=== PATIENT | male | born 1985 | race Caucasian/White ===

== ENCOUNTER 2016-04-04 15:30 | Emergency (ER) | payer SELFPAY ==
[~2016-04-04] VITALS: Ht 180.3 cm; Wt 81.6 kg
[2016-04-04 15:57] LABS: BILIRUBIN,URINE NEGATIVE (NEGATIVE); KETONES,URINE 2+ (NEGATIVE); LEUKOCYTE ESTERASE ,URINE NEGATIVE (NEGATIVE); NITRITE,URINE NEGATIVE (NEGATIVE); PH,URINE 5 (5-9); PROTEIN,URINE 1+ (NEGATIVE); UROBILINOGEN,URINE NORMAL (NORMAL)
[2016-04-04 16:00] LABS: BASOPHILS % (AUTO) 0 % (0-10); EOSINOPHILS % (AUTO) 0 % (0-10); LYMPHOCYTES # (AUTO) 1.1 X 10^3 (1.0-4.0); LYMPHOCYTES % (AUTO) 9 % (12-44); MEAN CORPUSCULAR HEMOGLOBIN 32 PG (25-34); MEAN CORPUSCULAR HGB CONC 35 G/DL (32-36); MEAN CORPUSCULAR VOLUME 91 FL (80-99); MEAN PLATELET VOLUME 9.4 FL (7.4-10.4); MONOCYTES # (AUTO) 0.8 X 10^3 (0.0-1.0); MONOCYTES % (AUTO) 7 % (0-12); NEUTROPHILS # (AUTO) 10.1 X 10^3 (1.8-7.8); NEUTROPHILS % (AUTO) 84 % (42-75); PLATELET COUNT 220 10^3/uL (130-400); RED BLOOD COUNT 4.42 10^6/uL (4.35-5.85)
[2016-04-04 16:06] LABS: WBC,URINE RARE /HPF
[2016-04-04 16:12] LABS: ALANINE AMINOTRANSFERASE 42 U/L (0-55); ALBUMIN 4.8 G/DL (3.2-4.5); ANION GAP 11 MMOL/L (5-14); ASPARTATE AMINO TRANSFERASE 47 U/L (5-34); BILIRUBIN,TOTAL 1.7 MG/DL (0.1-1.0); BLOOD UREA NITROGEN 19 MG/DL (7-18); BUN/CREATININE RATIO 22; CALCIUM 9.3 MG/DL (8.5-10.1); CARBON DIOXIDE 26 MMOL/L (21-32); CHLORIDE 100 MMOL/L (98-107); CREATININE SERUM 0.87 MG/DL (0.60-1.30); GFR ESTIMATED > 60; GLUCOSE 85 MG/DL (70-105); POTASSIUM 3.9 MMOL/L (3.6-5.0); SODIUM 137 MMOL/L (135-145); TOTAL PROTEIN 7.4 G/DL (6.4-8.2)
[2016-04-04 16:13] LABS: ALCOHOL < 10 MG/DL (<10)
--- NOTE | 2016-04-04 17:11 | ED Neurological Problem ---
General Chief Complaint: Neurological Problems Stated Complaint: SEIZURE Nursing Triage Note: AMBUALTED TO ROOM 07 WITH COMPLAINTS OF HAVING A SEIZURE WHILE AT WORK. HIT HIS HEAD ON THE GROUND CAUSING A BLACK EYE ON THE LEFT SIDE. STATES HE HAD A PREVIOUS SEIZURE ABOUT 1 YR AGO BUT WAS NOT PUT ON MEDICAITONS. Nursing Sepsis Screen: No Definite Risk Source: patient Exam Limitations: no limitations History of Present Illness Time seen by provider: 17:06 Initial Comments The patient is a 31-year-old white male who I coincidentally saw early in 2016 after a seizure. He reports that he works for a [employer] and they were working in their supplies building when he apparently fell to the ground and had a tonic-clonic type seizure. He believes that his postictal state was short if any. He apparently did not sleep or exhibit addled behavior afterwards. He has no complaints at this time. He is noted to have a small ecchymosis on the left lateral upper eyelid Timing/Duration: 4-6 hours Associated Symptoms: denies symptoms Allergies and Home Medications Allergies Coded Allergies: No Known Drug Allergies (Unverified , 04/17/15) Home Medications No Active Prescriptions or Reported Meds Constitutional: see HPI Eyes: No Symptoms Reported Ears, Nose, Mouth, Throat: no symptoms reported Respiratory: no symptoms reported Cardiovascular: no symptoms reported Gastrointestinal: no symptoms reported Genitourinary: no symptoms reported Musculoskeletal: no symptoms reported Skin: no symptoms reported Psychiatric/Neurological: No Symptoms Reported Endocrine: No Symptoms Reported Hematologic/Lymphatic: No Symptoms Reported Past Vrzpycb-Hfnemx-Unvbrf Hx Patient Social History Alcohol Use: Regular Use Recreational Drug Use: No Smoking Status: Never a Smoker Recent Foreign Travel: No Contact w/Someone Who Travel: No Recent Infectious Disease Expo: No Recent Hopitalizations: No Seasonal Allergies Seasonal Allergies: No Surgeries HX Surgeries: No Respiratory Hx Respiratory Disorders: No Cardiovascular Hx Cardiac Disorders: No Neurological Hx Neurological Disorders: Yes Neurological Disorders: Seizure Disorder Reproductive System Hx Reproductive Disorders: No Sexually Transmitted Disease: No HIV/AIDS: No Genitourinary Hx Genitourinary Disorders: No Gastrointestinal Hx Gastrointestinal Disorders: No Musculoskeletal Hx Musculoskeletal Disorders: No Endocrine Hx Endocrine Disorders: No HEENT HX ENT Disorders: No Cancer Hx Cancer: No Psychosocial Hx Psychiatric Problems: Yes (alcohol dependence) Integumentary HX Skin/Integumentary Disorder: No Blood Transfusions Hx Blood Disorders: No Family Medical History Family Medial History: Alcoholism 19 FATHER Hypertension 19 FATHER Myocardial infarction 19 FATHER Physical Exam Vital Signs Vital Sign - Last 12Hours 04/04/16 15:36 Temp 98.9 Pulse 89 Resp 18 B/P 167/98 Pulse Ox 99 Capillary Refill : Less Than 3 Seconds General Appearance: no apparent distress HEENT: other (ecchymosis lateral aspect left upper lid) Neck: full range of motion Respiratory: chest non-tender lungs clear normal breath sounds no respiratory distress no accessory muscle use respiratory distress Cardiovascular: normal peripheral pulses regular rate, rhythm no edema no gallop no JVD no murmur Gastrointestinal: normal bowel sounds non tender soft no organomegaly no pulsatile mass Back: normal inspection no CVA tenderness no vertebral tenderness CVA tenderness (R) CVA tenderness (L) Extremities: normal range of motion non-tender normal inspection no pedal edema no calf tenderness normal capillary refill pelvis stable 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 no motor/sensory deficits alert normal mood/affect oriented x 3 abnormal cerebellar tests Crainal Nerves: normal hearing normal speech PERRL Coordination/Gait: normal finger to nose normal gait other (alternating finger to thumb movements are equal and normal bilaterally) Motor/Sensory: no motor deficit no sensory deficit Skin: normal color warm/dry Lymphatic: no adenopathy Progress/Results/Core Measures Results/Orders Lab Results Laboratory Tests Test 04/04/16 15:45 Range/Units Alanine Aminotransferase (ALT/SGPT) 42 0-55 U/L Albumin 4.8 H 3.2-4.5 G/DL Alkaline Phosphatase 65 40-136 U/L Anion Gap 11 5-14 MMOL/L Aspartate Amino Transf (AST/SGOT) 47 H 5-34 U/L BUN/Creatinine Ratio 22 Basophils # (Auto) 0.0 0.0-0.1 10^3/uL Basophils (%) (Auto) 0 0-10 % Blood Urea Nitrogen 19 H 7-18 MG/DL Calcium Level 9.3 8.5-10.1 MG/DL Carbon Dioxide Level 26 21-32 MMOL/L Chloride Level 100 98-107 MMOL/L Creatinine 0.87 0.60-1.30 MG/DL Eosinophils # (Auto) 0.0 0.0-0.3 10^3/uL Eosinophils (%) (Auto) 0 0-10 % Estimat Glomerular Filtration Rate > 60 Glucose Level 85 70-105 MG/DL Hematocrit 40 40-54 % Hemoglobin 14.0 13.3-17.7 G/DL Lymphocytes # (Auto) 1.1 1.0-4.0 X 10^3 Lymphocytes (%) (Auto) 9 L 12-44 % Mean Corpuscular Hemoglobin 32 25-34 PG Mean Corpuscular Hemoglobin Concent 35 32-36 G/DL Mean Corpuscular Volume 91 80-99 FL Mean Platelet Volume 9.4 7.4-10.4 FL Monocytes # (Auto) 0.8 0.0-1.0 X 10^3 Monocytes (%) (Auto) 7 0-12 % Neutrophils # (Auto) 10.1 H 1.8-7.8 X 10^3 Neutrophils (%) (Auto) 84 H 42-75 % Platelet Count 220 130-400 10^3/uL Potassium Level 3.9 3.6-5.0 MMOL/L Red Blood Count 4.42 4.35-5.85 10^6/uL Red Cell Distribution Width 12.0 10.0-14.5 % Serum Alcohol < 10 <10 MG/DL Sodium Level 137 135-145 MMOL/L Total Bilirubin 1.7 H 0.1-1.0 MG/DL Total Protein 7.4 6.4-8.2 G/DL Ur Tricyclic Antidepressants Screen NEGATIVE NEGATIVE Urine Amorphous Sediment LARGE NAS URATES H /LPF Urine Amphetamines Screen NEGATIVE NEGATIVE Urine Bacteria NEGATIVE /HPF Urine Barbiturates Screen NEGATIVE NEGATIVE Urine Benzodiazepines Screen NEGATIVE NEGATIVE Urine Bilirubin NEGATIVE NEGATIVE Urine Cannabinoids Screen NEGATIVE NEGATIVE Urine Casts NONE /LPF Urine Clarity SLIGHTLY CLOUDY Urine Cocaine Screen NEGATIVE NEGATIVE Urine Color YELLOW Urine Crystals PRESENT H /LPF Urine Culture Indicated NO Urine Glucose (UA) NEGATIVE NEGATIVE Urine Ketones 2+ H NEGATIVE Urine Leukocyte Esterase NEGATIVE NEGATIVE Urine Methadone Screen NEGATIVE NEGATIVE Urine Methamphetamines Screen NEGATIVE NEGATIVE Urine Mucus MODERATE H /LPF Urine Nitrite NEGATIVE NEGATIVE Urine Opiates Screen NEGATIVE NEGATIVE Urine Oxycodone Screen NEGATIVE NEGATIVE Urine Phencyclidine Screen NEGATIVE NEGATIVE Urine Propoxyphene Screen NEGATIVE NEGATIVE Urine Protein 1+ H NEGATIVE Urine RBC NONE /HPF Urine RBC (Auto) NEGATIVE NEGATIVE Urine Specific Ralph 1.020 1.016-1.022 Urine Urobilinogen NORMAL NORMAL MG/DL Urine WBC RARE /HPF Urine pH 5 5-9 White Blood Count 12.0 H 4.3-11.0 10^3/uL My Orders Orders-CARLYLE SALAMANCA MD Ct Head Wo (04/04/16 17:05) Vital Signs/I&O Vital Sign - Last 12Hours 04/04/16 15:36 Temp 98.9 Pulse 89 Resp 18 B/P 167/98 Pulse Ox 99 Blood Pressure Mean: 121 Departure Communication Progress Notes CT scan was negative. Drug screen did not yield any surprises. Discussed with the patient that by [place] law he should not drive for 6 months without a seizure. Further this being a second event he showed really pursue a more complete neurologic evaluation and anti-seizure medications if appropriate. He is agreeable to this Impression Impression: Primary Impression: neurologic event/syncope Disposition: 01 HOME, SELF-CARE Condition: Stable/Unchanged Departure-Patient Inst. Decision time for Depature: 18:10 Referrals: NO,LOCAL PHYSICIAN (PCP) Primary Care Physician Patient Instructions: Seizures, Adult (DC) Add. Discharge Instructions: All discharge instructions reviewed with patient and/or family. Voiced understanding. You should not drive until you've completed a workup with negative results or have gone 6 months without a seizure. You need to find a provider in order to pursue your workup you might consider Dr. Robin Payan at [phone] to begin this persisted Scripts No Active Prescriptions or Reported Meds CARLYLE SALAMANCA MD Apr 04, 2016 17:11
--- NOTE | 2016-04-04 17:21 | Diagnostic Imaging Report ---
PROCEDURE: CT head without contrast. TECHNIQUE: Multiple contiguous axial images were obtained through the brain without the use of intravenous contrast. INDICATION: Seizure. Bruising above the left eye. FINDINGS: The ventricles are normal in size, shape, and position. There is no acute parenchymal hemorrhage, edema, or mass. There is no extra-axial mass or hemorrhage. There is no bony abnormality. IMPRESSION: No acute abnormality is seen. Dictated by: Dictated on workstation # [id number]
[2016-04-04 18:18] VITALS: BP 142/81
== END 2016-04-04 18:18 | disposition home or self-care (01) ==
LOC: EDUNIT# 15:30 → ER 15:31
DX: G40.909 Epilepsy, unspecified, not intractable, without status epilepticus (principal); S00.12XA Contusion of left eyelid and periocular area, initial encounter; W01.0XXA Fall on same level from slipping, tripping and stumbling without subsequent striking against object, initial encounter; Y92.59 Other trade areas as the place of occurrence of the external cause; Y99.8 Other external cause status
CPT/HCPCS: 36415; 70450; 80053; 80306; 80320; 81000; 85025

== ENCOUNTER 2022-07-03 05:27 | Outpatient (CLI) | payer OTHER ==
[~2022-07-03] VITALS: Ht 180.3 cm; Wt 86.4 kg
== END 2022-07-03 16:01 | disposition home or self-care (01) ==
LOC: PREOP 05:27
PROVIDERS: ATTEND Orthopaedic Surgery
DX: Z01.818 Encounter for other preprocedural examination (principal)

== ENCOUNTER 2022-07-10 06:04 | Day surgery (SDC) | payer OTHER ==
--- NOTE | 2022-06-28 08:37 | HISTORY AND PHYSICAL ---
This will be for outpatient surgery on 07/03/2022 for right knee arthroscopy. HISTORY: The patient is a 37-year-old active gentleman with a several year history of right knee pain. He originally injured his knee a few years ago and felt heard a pop when he twisted. Since that time, he has had periodic popping. He reports pain primarily when he loads the medial aspect of his knee or twists or pivots in that direction. He reports activity limitations because of the knee. He reports that at the time of his injury, he had marked swelling and has had periodic swelling since then. He denies giving [ ]. He has tried activity modifications, anti-inflammatories without relief. Due to functional impairment and failure to improve with conservative measures, the patient elected to proceed with surgical intervention. Radiographs reveal no significant acute or chronic changes. REVIEW OF SYSTEMS: No chest pain, no shortness of breath. No dysuria. PAST MEDICAL HISTORY: Unremarkable. PAST SURGICAL HISTORY: None. FAMILY HISTORY: None. PRIMARY CARE PROVIDER: Dr. Patterson. MEDICATIONS: None. ALLERGIES: NO KNOWN DRUG ALLERGIES. SOCIAL HISTORY: The patient drinks alcohol socially. Denies tobacco use. PHYSICAL EXAMINATION: GENERAL: The patient is well-developed, well-nourished, in no acute distress. HEENT: Normocephalic, atraumatic. Pupils equal, round, reactive to light. Oropharynx is clear. NECK: Supple. No lymphadenopathy. LUNGS: Clear to auscultation bilaterally. HEART: Regular rate and rhythm. ABDOMEN: Soft, nontender, nondistended. EXTREMITIES: Right knee demonstrates a slight effusion. He is markedly tender along his medial joint line. He has an audible click with Jessica's medially with pain elicited. He has pain with hyperflexion medially as well. No varus or valgus laxity. Negative anterior and posterior drawer. Range of motion 0/0/114. IMPRESSION: Right knee medial meniscus tear. PLAN: Right knee arthroscopy with partial medial meniscectomy. The risks, benefits, options, ramifications and recovery were discussed at length with the patient. He understands and wishes to proceed. Job ID: [id number] DocumentID: [id number] Dictated Date: 06/24/2022 12:14:49 [employer] Date: 06/24/2022 13:21:00 Dictated By: FELIX GHOTRA MD
[2022-07-10] VITALS (10 sets, daily range): BP systolic 102–125; BP diastolic 65–96
[~2022-07-10] VITALS: Ht 180.3 cm; Wt 86.4 kg
[2022-07-10] MEDS ORDERED: ceFAZolin INJECTION 2,000 MG in NS (IVPB) 50 ML IV ONE (06:15)
[2022-07-10] MEDS ORDERED: LACTATED RINGERS 1,000 ML IV PRN (06:15)
[2022-07-10] MEDS ORDERED: ONDANSETRON 4 MG/2 ML (SDV) Z0FRAN ONE (06:57)
[2022-07-10] MEDS ORDERED: MIDAZOLAM 2 MG/2 ML (VERSED) VIAL ONE (06:57)
[2022-07-10] MEDS ORDERED: proPOfol 200 MG/20 ML (DIPRIVAN) VIAL IV ONE (06:57)
[2022-07-10] MEDS ORDERED: SEVOFLURANE (ULTANE) 15 ML INHAL SOLN ONE ×2 (06:57→07:31)
[2022-07-10] MEDS ORDERED: fentaNYL INJ 100 MCG/2 ML AMP ONE (06:57)
[2022-07-10] MEDS ORDERED: LIDOCAINE PF 2% 5 ML (XYLOCAINE) VIAL ONE (06:57)
[2022-07-10] MEDS ORDERED: BUPIVACAINE 0.25% 30 ML (SENSORCAINE) VIAL ONE (07:13)
[2022-07-10] MEDS ORDERED: morphine PF (DURAMORPH) 10 MG/10 ML AMP ONE (07:13)
--- NOTE | 2022-07-10 07:29 | Progress Note-Pre Operative ---
Pre-Operative Progress Note Date of Available H&P: Jun 23, 2022 Date H&P Reviewed: July 10, 2022 Time H&P Reviewed: 07:11 Changes from last HP none Pre-Operative Diagnosis: right medial meniscus tear FELIX GHOTRA MD July 10, 2022 07:29
[2022-07-10] MEDS ORDERED: HYDROcodone/APAP 7.5 MG/325 MG (LORTAB, LORCET PLUS) TABLET PO PRN (07:30)
--- NOTE | 2022-07-10 07:30 | Progress Note-Post Operative ---
Post-Operative Progess Note Surgeon (s)/Stone Processing Machine Operator (s) Surgeon FELIX GHOTRA MD Stone Processing Machine Operator: Jose Leach Pre-Operative Diagnosis right medial meniscus tear Post-Operative Diagnosis right medial and lateral meniscus tears Procedure & Operative Findings Date of Procedure 07/10/22 Procedure Performed/Findings right knee arthroscopic partial medial and lateral meniscectomies Anesthesia Type GETA Estimated Blood Loss Estimated blood loss (mL): minimal Specimens/Packing Specimens Removed none Packing: none FELIX GHOTRA MD July 10, 2022 07:30
--- NOTE | 2022-07-10 08:07 | Anesthesia-General Post-Op ---
General Patient Condition Mental Status/LOC: Same as Preop Cardiovascular: Satisfactory Nausea/Vomiting: Absent Respiratory: Satisfactory Pain: Controlled Complications: Absent Post Op Complications Complications None Follow Up Care/Instructions Patient Instructions None needed. Anesthesia/Patient Condition Patient Condition Patient is doing well, no complaints, stable vital signs, no apparent adverse anesthesia problems. No complications reported per nursing. CHANNING LARSEN CRNA July 10, 2022 08:07
[2022-07-10] MEDS ORDERED: morphine PF (DURAMORPH) 10 MG/10 ML AMP INJ ONE (08:08)
[2022-07-10] MEDS ORDERED: BUPIVACAINE 0.25% 30 ML (SENSORCAINE) VIAL INJ ONE (08:10)
[2022-07-10] MEDS ORDERED: morphine INJ 10 MG/ML 1ML (SYR OR VIAL) IVP ONE (08:15)
[2022-07-10] MEDS ORDERED: ONDANSETRON 4 MG/2 ML (SDV) Z0FRAN IVP PRN (08:15)
[2022-07-10] MEDS ORDERED: MEPERIDINE (DEMEROL) INJ 50 MG/ML IVP ONE (08:15)
[2022-07-10] MEDS ORDERED: fentaNYL INJ 100 MCG/2 ML AMP IVP ONE (08:15)
--- NOTE | 2022-07-10 16:25 | OPERATIVE REPORT ---
DATE OF SERVICE: 07/10/2022 PREOPERATIVE DIAGNOSIS: Right knee medial meniscus tear. POSTOPERATIVE DIAGNOSES: 1. Right knee medial meniscus tear. 2. Right knee lateral meniscus tear. PROCEDURES: 1. Right knee arthroscopic partial medial meniscectomy. 2. Right knee arthroscopic partial lateral meniscectomy. SURGEON: Gómez Ghotra MD. TIMBER FALLER: PHILLY Gomez, who assisted throughout the procedure and closed the incisions. ANESTHESIA: General endotracheal by Jose Patterson CRNA. TOURNIQUET TIME: Not applicable. ESTIMATED BLOOD LOSS: Minimal. DRAINS: None. COMPLICATIONS: None. POSTOPERATIVE PLAN: Routine arthroscopy protocol. The patient was transferred to the recovery room awake and in stable condition. STATEMENT OF MEDICAL NECESSITY: The patient is a 37-year-old gentleman, with complaints of right medial knee pain, catching, locking and swelling. He is tender along his medial joint line. He had large effusion. He had pain with Jessica's. Due to functional impairment and failure to improve with conservative measures, the patient elected to proceed with surgical intervention. Examination under anesthesia revealed range of motion 0/0/135 with negative Franklyn, negative anterior and posterior drawer, no varus or valgus laxity and negative pivot shift. ARTHROSCOPIC FINDINGS: The patella and trochlea demonstrated no gross chondral abnormalities. Medial and lateral gutters were clear. The ACL and PCL were intact. The lateral compartment demonstrated a radial tear of the body of the meniscus involving approximately 20% of the body. No chondral pathology was noted. The medial compartment demonstrated a complex tear of the posterior horn of the medial meniscus involving approximately one-half of the posterior horn. DESCRIPTION OF PROCEDURE: After risks and benefits of the procedure were discussed and questions were answered, informed consent was signed and placed on the chart. The operative site was confirmed in the preoperative holding area initialed by surgeon. The patient was then transported to the operating room. After adequate levels of general endotracheal anesthetic were obtained, a timeout was called, confirming the operative site. Examination under anesthesia was performed with the above findings noted. The right lower extremity was prepped and draped in the usual sterile fashion. Knee joint was injected with 60 mL fluid. Standard inferolateral portal was placed for the arthroscope under direct visualization. Inferior medial portal was created. The menisci and cruciates were carefully probed with above findings noted. The lateral meniscus tear was debrided with a shaver back to a stable edge. Scope was then redirected into the medial compartment where the posterior horn of the medial meniscus was debrided with a biter and a shaver back to a stable edge. This was carefully probed with no further tearing or instability noted. The knee was copiously irrigated. The portal sites were closed with 4-0 nylon in simple interrupted fashion. Knee was injected with Duramorph. The portal sites were infiltrated with plain Marcaine. A soft dressing was applied and the patient was transferred to the recovery room awake and in stable condition. Job ID: [id number] DocumentID: [id number] Dictated Date: 07/10/2022 08:03:14 [employer] Date: 07/10/2022 16:22:00 Dictated By: GÓMEZ GHOTRA MD
== END 2022-07-10 09:50 ==
LOC: SDC 06:04
PROVIDERS: ATTEND Orthopaedic Surgery
DX: S83.231A Complex tear of medial meniscus, current injury, right knee, initial encounter (principal); S83.281A Other tear of lateral meniscus, current injury, right knee, initial encounter; Y99.9 Unspecified external cause status
CPT/HCPCS: 87081